=== PATIENT | female | born 2000 | race Two or more races ===

== ENCOUNTER 2024-06-13 10:11 | Emergency (ER) | payer MEDICAID, SELFPAY ==
[2024-06-13 10:13] VITALS: BMI 22.4
[2024-06-13 11:12] VITALS: BP 115/68; PULSE 72; RESP 17; TEMP 37.2; O2SAT 98
--- NOTE | 2024-06-13 11:18 | EDNOTE_ITS ---
<Statement entered by Mia Grayson MD - 06/13/24 16:04> As co-signing physician, I was present and available for consult prn. I concur with the plan and care as documented by the midlevel provider. ED General RME/HPI General Chief complaint: Chest Pain Stated complaint: CHEST PAIN & R BREAST PAIN S/P LUMP Time Seen by Provider: 06/13/24 11:15 Arrival date/time: 06/13/24 10:11 CC: Chest pain lump in right breast HPI patient presents the ER states she has had intermittent chest pain for the last 2 weeks, the patient states last episode was last night lasting 1 to 2 minutes, pressure in nature. No prior history of similar events. States when she presses on her chest that she has the same tenderness in the chest. Patient states right breast mass was noted by her primary care doctor, and I am not sure if the patient was stating that she has follow-up. Related Data Allergies Allergy/AdvReac Type Severity Reaction Status Date / Time NKA* Allergy Uncoded 06/13/24 10:16 Review of Systems Review of Systems Narrative Review of Systems: GEN: No fever, no chills, no weight loss EYES: No discharge, no visual changes, no pain HEENT: No ear pain, no congestion, no sore throat PULM: No shortness of breath, no cough, no congestion CV: + chest pain, no dyspnea on exertion, no palpitations GI: No nausea, no vomiting, no diarrhea, no pain, no constipation : No frequency, no urgency, no dysuria MUSC/SKEL: No joint pain, no back pain SKIN: No rash PSYCH: No hallucinations, no depression HEME/LYMPH: No easy bleeding or bruising tendencies NEURO: No weakness, no headache Past Medical History Social History SMOKING STATUS: Never smoker ED Exam Narrative Physical exam: [General: Not in any acute distress Head normocephalic HEENT: Within acceptable limits Neck is supple nontender Chest equal chest rise nontender to palpation Respiratory: Clear to auscultation no wheezes crackles or rubs CV: Rate rhythm is regular no murmurs rubs or clicks Abdomen is soft nontender no masses positive bowel sounds all 4 quadrants Back: No CVA tenderness no spinous process tenderness from cervical spine thoracic and lumbar spine Skin: Intact no petechiae rash induration ulceration or crepitus Extremities: Moving all extremity against resistance cap refill less than 2 seconds neurosensory intact Neuro: Awake alert oriented x3 Glascow coma 15 no focal deficits] Course Quality Measures none Vital Signs Vital signs: Vital Signs Temperature 98.9 F 06/13/24 11:12 Pulse Rate 72 06/13/24 11:12 Respiratory Rate 17 06/13/24 11:12 Blood Pressure 115/68 06/13/24 11:12 Pulse Oximetry (%) 98 06/13/24 11:12 Oxygen Delivery Method Room Air 06/13/24 11:12 [facility] Patient data External records reviewed:: [facility] previous records Clinical information provided by:: patient Social determinants that could affect healthcare access:: none Patient has the following chronic illnesses:: None How is presenting disease/condition affected by chronic disease/condition?: uneffected by Evaluation data The following diagnostics were reviewed and interpreted by me:: other (specify) (None) Lab and/or radiology exams considered but not ordered:: None Interpretation Summary: Chest pain is intermittent, is currently absent, and based on the patient's assessment is reproducible with palpation I have low index of suspicion this is any acute cardiac finding. As to the breast mass. This is already been identified by the primary care provider and the patient needs to follow-up p romptly for further workup. The patient is nontoxic afebrile not in any acute distress. Patient advised if there is worsening of symptoms return to the emergency room medially for further evaluation. Medications Medications considered but not ordered:: None Medication administrations:: None Consultations Consultation(s) initiated? (list below): No Diagnosis Differential Diagnosis ED Complaint MDM: Chest pain somatizations anxiety Most likely diagnosis given after review of the tests above:: Chest pain Admission Indicated Admission indicated?: not indicated Explain why admission is indicated or not indicated:: Stable for discharge Admission Request Was there a request for admission?: No Disposition Plan Disposition Plan: Discharge Discharge Attestation Discharge Attestation: The patient and all family members were given an opportunity to ask questions and understood the discharge instructions. Discharge instructions specifically effects, indications for sooner follow up or return to the emergency department, and the expected course of current diagnosis. Patient condition: Stable Medical Decision Making Differential Diagnosis Differential Diagnosis: Chest pain somatizations anxiety Discharge Plan Plan Patient Disposition: HOME (Self Care) Patient condition on transfer: Stable Prescriptions/Referrals Referrals: Axel Zaldivar MD [Primary Care Provider] - In 1 week Problem List Clinical Impression: Chest pain Patient/Caregiver Discharge Instructions Education Materials: ED Chest Pain, Uncertain Cause Additional Instructions: Follow-up with your primary care provider regarding her chest pain low index of suspicion this is cardiac in nature, follow-up with your primary care provider for your breast mass for follow-up. Of this or worsening of symptoms return the emergency room for reevaluation peer Print Language: [place] Stand Alone Forms: Lavern Award Info., Work/School Release, Patient Portal Info Letter PA/PROCESS TECH Supervising Physician PA/PROCESS TECH Supervising Physician: Dirk blair ENP
--- NOTE | 2024-06-13 12:05 | PC.NURSE ---
RN attempted to call pt from the lobby three times. pt not found in or outside the lobby. pt eloped
[2024-06-13 12:10] VITALS: RESP 17; TEMP 37.2; O2SAT 98
== END 2024-06-13 12:10 | disposition home or self-care (01) ==
PROVIDERS: Emergency Provider Emergency Medicine; PCP Family Medicine
DX: R07.89 Other chest pain (principal)
CPT/HCPCS: 99281

== ENCOUNTER → 2024-06-15 | Outpatient (CLI) | payer MEDICAID, SELFPAY ==
--- NOTE | 2024-06-15 09:37 | XR_ITS ---
Examination: Breast ultrasound, unilateral, right Date and time of exam: June 15, 2024 0945 hrs. Indications: New palpable lump right breast note is beginning 3 weeks ago Technique: Real-time ji scale ultrasonographic imaging performed right breast including all 4 quadrants as well as nipple retroareolar and axillary region. Findings: 6:00 circumscribed nodule 6 x 7 mm 10:00 nodule taller than wide indistinct margins 10 x 9 x 12 mm Impression: BI-RADS Category 4: Suspicious for malignancy Suspicious nodule 10:00 right breast, biopsy is needed to exclude breast carcinoma, this nodule is amenable to ultrasound-guided breast biopsy Given the appearance of this nodule, also recommend diagnostic mammography follow-up
== END | disposition home or self-care (01) ==
DX: N63.11 Unspecified lump in the right breast, upper outer quadrant (principal); N63.15 Unspecified lump in the right breast, overlapping quadrants
CPT/HCPCS: 76641

== ENCOUNTER → 2024-07-03 | Outpatient (CLI) | payer MEDICAID, SELFPAY ==
--- NOTE | 2024-07-03 | XR_ITS ---
Examination: Diagnostic digital mammography, bilateral Computer aided detection 3-D breast Tomosynthesis, bilateral Date and time of exam: July 03, 2024 10:50 AM INDICATIONS: Bilateral breast pain bilateral breast lumps beginning 4 weeks ago Technique: Nonmagnified MLO, CC views of the breasts to been obtained, reconstructed from 3-D Tomosynthesis images. R2 computer aided detection program utilized for evaluation of suspicious masses and/or abnormal calcifications. 3-D Tomosynthesis images obtained. Findings: The breasts are extremely dense which limits the sensitivity of mammography Benign calcifications No suspicious masses Impression: BI-RADS Category 2: Benign findings Recommend repeat bilateral breast sonography in 3 months if palpable abnormalities remain.
--- NOTE | 2024-07-03 10:31 | XR_ITS ---
Examination: Breast ultrasound, unilateral, left complete Date and time of exam: June 25, 2024 1050 hours INDICATIONS: Patient states bilateral breast lumps noticed beginning 3 weeks ago, family history breast cancer Technique: Real-time ji scale ultrasonographic imaging performed left breast including all 4 quadrants as well as nipple retroareolar and axillary region. Findings: 3:00 circumscribed nodule intramammary lymph node 7 x 7 mm 4:00 circumscribed nodule lobular margins intramammary lymph node 8 x 1 mm IMPRESSION: BI-RADS Category 2: Benign findings
== END | disposition home or self-care (01) ==
PROVIDERS: Referring Provider Nurse Practitioner Family; Visit Provider Nurse Practitioner Family
DX: R92.323 Mammographic fibroglandular density, bilateral breasts (principal); N63.23 Unspecified lump in the left breast, lower outer quadrant; Z80.3 Family history of malignant neoplasm of breast
CPT/HCPCS: 76641; 77062; 77066; G0279